=== PATIENT | male | born 1945 | race Caucasian/White ===

== ENCOUNTER 2019-06-15 11:21 | Emergency (ER) | payer MEDICARE, OTHER ==
[2019-06-15 11:34] VITALS: PULSE 101; RESP 20; TEMP 97.1; O2SAT 94
[2019-06-15] MEDS ORDERED: GLUCAGON HYDROCHLORIDE 1 MG PDS IV ONE (11:54)
[2019-06-15] MEDS ORDERED: SODIUM CHLORIDE 0.9% 1000ML 1,000 ML IV ONE (11:54)
[2019-06-15] MEDS ORDERED: LORAZEPAM 2 MG/ML SOL IV ONE (11:54)
[2019-06-15 12:17] VITALS: BP 116/66
== END 2019-06-15 12:30 | disposition home or self-care (01) | DRG 159 ==
LOC: ED 11:21
DX: T18.0XXA Foreign body in mouth, initial encounter (principal); T17.220A Food in pharynx causing asphyxiation, initial encounter
CPT/HCPCS: 99282